=== PATIENT | male | born 1960 | race Caucasian/White ===

== ENCOUNTER 2020-09-20 08:40 | Inpatient (IN) | payer BC ==
[~2020-09-20] VITALS: Ht 190.5 cm; Wt 152.0 kg
[2020-09-20] MEDS ORDERED: metoprolol tartrate 1mg/ml inj IV ONE (09:10)
[2020-09-20] MEDS ORDERED: FERR325T35 PO (09:26)
[2020-09-20] MEDS ORDERED: ASPI-1265 PO (09:26)
[2020-09-20] MEDS ORDERED: NITR0.4T51 SL (09:26)
[2020-09-20] MEDS ORDERED: FURO-150 PO (09:26)
[2020-09-20] MEDS ORDERED: METF500T PO (09:26)
[2020-09-20] MEDS ORDERED: CARV-50 PO (09:26)
[2020-09-20] MEDS ORDERED: POTA10TA19 PO (09:26)
[2020-09-20] MEDS ORDERED: ROSU10TA2 PO (09:26)
[2020-09-20] MEDS ORDERED: OMEG-79 PO (09:26)
[2020-09-20] MEDS ORDERED: OMEP40CA13 PO (09:26)
[2020-09-20 09:49] LABS: BASOPHILS % (AUTO) 0.4 % (0-1); EOSINOPHILS # (AUTO) 0.1 X10'3 (0-0.9); EOSINOPHILS % (AUTO) 1.5 % (0-6); HEMATOCRIT 44.4 % (42.0-52.0); HEMOGLOBIN 15.1 g/dl (14.0-17.9); LYMPHOCYTES % (AUTO) 30.5 % (21-51); MEAN CORPUSCULAR HEMOGLOBIN 30.8 PG (27.0-31.0); MEAN CORPUSCULAR VOLUME 90.7 FL (78-98); MEAN PLATELET VOLUME 9.1 FL (7.4-10.4); MONOCYTES # (AUTO) 0.4 X10'3 (0-0.9); MONOCYTES % (AUTO) 5.6 % (2-12); NEUTROPHILS # (AUTO) 4.1 X10'3 (1.8-7.7); PLATELET COUNT 226 X10'3 (140-440); RED BLOOD COUNT 4.89 X10'6 (4.70-6.10); RED CELL DISTRIBUTION WIDTH 14.1 % (11.5-14.5); WHITE BLOOD COUNT 6.7 X10'3 (4.5-11.0)
[2020-09-20 10:00] LABS: ALANINE AMINOTRANSFERASE 67 U/L (12-78); ALBUMIN 4.1 G/DL (3.4-5.0); ALKALINE PHOSPHATASE 78 IU/L (46-116); ANION GAP 11 (8-16); ASPARTATE AMINO TRANSFERASE 27 U/L (10-37); BILIRUBIN,TOTAL 0.3 MG/DL (0.1-1.0); BLOOD UREA NITROGEN 17 MG/DL (7-18); BUN/CREATININE RATIO 15.9 (5.4-32.0); CHLORIDE 100 MMOL/L (99-107); CREATININE 1.07 MG/DL (0.60-1.10); GLUCOSE 245 MG/DL (70-104); SODIUM 136 MMOL/L (135-145); TOTAL PROTEIN 8.2 G/DL (6.4-8.2); eGFR 70 ML/MIN
--- NOTE | 2020-09-20 11:56 | NUR ---
waiting for 3hr trop which is due at 1225 and then will evaluate as to whether he can go home after this blood work is back.
[2020-09-20] MEDS ORDERED: aspirin 81mg tab.chew PO STA (12:52)
[2020-09-20] MEDS ORDERED: nitroGLYCERIN 0.4mg SUBLingual tab SL PRN (13:35)
[2020-09-20] MEDS ORDERED: heparin 10,000 units/1 ML INJ IV ONE (13:40)
[2020-09-20] MEDS ORDERED: magnesium hydroxide 30ml (MOM) UD suspension PO PRN (13:40)
[2020-09-20] MEDS ORDERED: magnesium 4gm in 100ml NS 100 ML IV PRN (13:40)
[2020-09-20] MEDS ORDERED: potassium CL 10mEq/100ml bag 100 ML IV PRN ×2 (13:40)
[2020-09-20] MEDS ORDERED: acetaminophen 325mg tablet PO PRN (13:40)
[2020-09-20] MEDS ORDERED: magnesium 2GM in 50ml NS 50 ML IV PRN (13:40)
[2020-09-20] MEDS ORDERED: HYDROcodone/acetaminophen 5mg/325mg tablet PO PRN (13:40)
[2020-09-20] MEDS ORDERED: heparin 10,000 units/1 ML INJ IV PRN (13:40)
[2020-09-20] MEDS ORDERED: magnesium Cl slow-release 64mg tablet PO PRN (13:40)
[2020-09-20] MEDS ORDERED: potassium Cl 20 mEq SR tablet PO PRN ×2 (13:40)
[2020-09-20] MEDS ORDERED: mag hydrox/Alum hydrox/simeth 30ml oral suspension PO PRN (13:40)
[2020-09-20] MEDS ORDERED: HYDROcodone/acetaminophen 10/325mg tab PO PRN (13:40)
[2020-09-20] MEDS ORDERED: ondansetron/PF 4mg/2ml inj IV PRN (13:40)
[2020-09-20] MEDS ORDERED: metoclopramide 5 mg/ml inj IV PRN (13:40)
[2020-09-20] MEDS ORDERED: acetaminophen 650mg rectal suppository RC PRN (13:40)
[2020-09-20] MEDS ORDERED: morphine 2 MG/ML inj. syringe IV PRN ×2 (13:40)
[2020-09-20] MEDS: heparin 25,000 UNIT/250ml bag 250 ML IV SCH ×2 (14:02→21:34)
[2020-09-20 14:09] LABS: URINE AMPHETAMINE SCREEN NEGATIVE (Neg); URINE BARBITUATE SCREEN NEGATIVE (Neg); URINE BENZODIAZEPINES SCREEN NEGATIVE (Neg); URINE CANNABINOID SCREEN NEGATIVE (Neg); URINE COCAINE SCREEN NEGATIVE (Neg); URINE METHADONE SCREEN NEGATIVE (Neg); URINE OPIATE SCREEN NEGATIVE (Neg); URINE PHENCYCLIDINE SCREEN NEGATIVE (Neg)
[2020-09-20] MEDS: normal saline 1000ml 1,000 ML IV SCH ×2 (14:09→23:19)
[2020-09-20 15:10] LABS: BASOPHILS % (AUTO) 0.4 % (0-1); EOSINOPHILS # (AUTO) 0.1 X10'3 (0-0.9); EOSINOPHILS % (AUTO) 1.4 % (0-6); HEMATOCRIT 42.9 % (42.0-52.0); HEMOGLOBIN 14.4 g/dl (14.0-17.9); LYMPHOCYTES # (AUTO) 2.8 X10'3 (1.1-4.8); LYMPHOCYTES % (AUTO) 38.7 % (21-51); MEAN CORPUSCULAR HEMOGLOBIN 30.2 PG (27.0-31.0); MEAN CORPUSCULAR HGB CONC 33.6 g/dL (33.0-36.5); MEAN CORPUSCULAR VOLUME 89.8 FL (78-98); MEAN PLATELET VOLUME 8.8 FL (7.4-10.4); MONOCYTES # (AUTO) 0.5 X10'3 (0-0.9); MONOCYTES % (AUTO) 6.9 % (2-12); NEUTROPHILS # (AUTO) 3.8 X10'3 (1.8-7.7); NEUTROPHILS % (AUTO) 52.6 % (42-75); PLATELET COUNT 222 X10'3 (140-440); RED BLOOD COUNT 4.77 X10'6 (4.70-6.10); WHITE BLOOD COUNT 7.2 X10'3 (4.5-11.0)
[2020-09-20 15:24] LABS: PARTIAL THROMBOPLASTIN TIME 50 SECONDS (22-32)
--- NOTE | 2020-09-20 15:56 | NUR ---
New PTT needs to be drawn at 2039 to recheck levels.
[2020-09-20 16:21] LABS: MAGNESIUM 1.7 MG/DL (1.5-2.4)
[2020-09-20] MEDS: furosemide 20MG tablet PO SCH (20:00)
[2020-09-20] MEDS: K and/or MAG REPLACEMENT MC SCH (20:00)
[2020-09-20] MEDS: carVEDilol 12.5mg tablet PO SCH (20:17)
[2020-09-20] MEDS: potassium Cl 20 mEq SR tablet PO SCH (20:18)
[2020-09-20] MEDS: atorvastatin 20mg tablet PO SCH (20:21)
--- NOTE | 2020-09-20 20:23 | NUR ---
Patient states he only takes his evening dose of lasix if his legs swell and he politely declines his evening dose.
[2020-09-20] MEDS ORDERED: temazepam 15mg capsule PO PRN (21:00)
[2020-09-21] VITALS (7 sets, daily range): BP systolic 122–166; BP diastolic 60–85
--- NOTE | 2020-09-21 01:06 | NUR ---
received report. room ready in 311.
[2020-09-21 03:06] LABS: HEMOGLOBIN A1C 7.8 % (4.5-6.2)
[2020-09-21 03:56] LABS: BASOPHILS % (AUTO) 0.3 % (0-1); EOSINOPHILS # (AUTO) 0.1 X10'3 (0-0.9); EOSINOPHILS % (AUTO) 1.8 % (0-6); HEMATOCRIT 38.6 % (42.0-52.0); HEMOGLOBIN 13.1 g/dl (14.0-17.9); LYMPHOCYTES # (AUTO) 2.7 X10'3 (1.1-4.8); LYMPHOCYTES % (AUTO) 38.5 % (21-51); MEAN CORPUSCULAR HEMOGLOBIN 30.5 PG (27.0-31.0); MEAN CORPUSCULAR VOLUME 89.6 FL (78-98); MEAN PLATELET VOLUME 8.7 FL (7.4-10.4); MONOCYTES # (AUTO) 0.5 X10'3 (0-0.9); MONOCYTES % (AUTO) 6.8 % (2-12); NEUTROPHILS # (AUTO) 3.7 X10'3 (1.8-7.7); NEUTROPHILS % (AUTO) 52.6 % (42-75); PLATELET COUNT 182 X10'3 (140-440); RED BLOOD COUNT 4.31 X10'6 (4.70-6.10); RED CELL DISTRIBUTION WIDTH 14.3 % (11.5-14.5); WHITE BLOOD COUNT 7.1 X10'3 (4.5-11.0)
[2020-09-21 04:11] LABS: ALBUMIN 3.4 G/DL (3.4-5.0); ANION GAP 11 (8-16); BLOOD UREA NITROGEN 14 MG/DL (7-18); CALCIUM 8.6 MG/DL (8.5-10.1); CHLORIDE 106 MMOL/L (99-107); CHOLESTEROL 127 MG/DL (0-200); CREATININE 1.08 MG/DL (0.60-1.10); GLUCOSE 184 MG/DL (70-104); HDL CHOLESTEROL 32 MG/DL (35-60); LDL CHOLESTEROL 71 MG/DL (50-100); MAGNESIUM 1.7 MG/DL (1.5-2.4); POTASSIUM 3.6 MMOL/L (3.5-5.1); SODIUM 141 MMOL/L (135-145); TOTAL CARBON DIOXIDE 23.9 MMOL/L (24-32); TRIGLYCERIDES 248 MG/DL (20-135); eGFR 70 ML/MIN
[2020-09-21] MEDS: heparin 25,000 UNIT/250ml bag 250 ML IV SCH ×2 (04:22→08:15)
--- NOTE | 2020-09-21 06:28 | NUR ---
reported to days. noted pt not having pain at all since 1800.
[2020-09-21] MEDS: K and/or MAG REPLACEMENT MC SCH ×2 (08:00→19:27)
[2020-09-21] MEDS: carVEDilol 12.5mg tablet PO SCH ×2 (08:11→19:27)
[2020-09-21] MEDS: aspirin 81mg tab.chew PO SCH (08:11)
[2020-09-21] MEDS: furosemide 20MG tablet PO SCH ×2 (08:11→19:29)
[2020-09-21] MEDS: pantoprazole 40mg Tablet.DR PO SCH (08:11)
[2020-09-21] MEDS: potassium Cl 20 mEq SR tablet PO SCH ×2 (08:11→19:27)
[2020-09-21] MEDS: normal saline 1000ml 1,000 ML IV SCH ×2 (08:17→19:40)
--- NOTE | 2020-09-21 09:19 | NUR ---
NOTIFIED PAGER ID: [phone] MESSAGE: [phone] SHANA JUNIOR. COMPLAINING OF CHEST BURNING/PRESSURE. 12-LEAD EKG TAKEN. I DONT SEE CHANGE. WOULD YOU LIKE TO SEE TO SEE IT? IVETH BARNES EXT [id number]
[2020-09-21] MEDS: acetaminophen 325mg tablet PO PRN ×2 (09:39→19:27)
[2020-09-21 10:20] LABS: H PYLORI ANTIBODY NEGATIVE (Neg)
[2020-09-21] MEDS ORDERED: heparin 1,000unit/ml 10ml vial 10 ML ONE (11:08)
[2020-09-21] MEDS ORDERED: nitroGLYCERIN-Tridil 50MG/D5W 250 ML IV ONE (11:08)
[2020-09-21] MEDS ORDERED: iohexol 350 MG/1 ML 200ml bottle ONE (11:08)
[2020-09-21] MEDS ORDERED: iohexol 350 MG/ML 50ML vial IV ONE (11:08)
[2020-09-21] MEDS ORDERED: LIDOcaine 1% 30ml preserv. free vial ONE (11:09)
[2020-09-21] MEDS ORDERED: midazolam 2 mg/2 ml injection ONE (11:41)
[2020-09-21] MEDS ORDERED: fentaNYL/PF 50MCG/1 ML 2ML syringe ONE (11:41)
--- NOTE | 2020-09-21 13:20 | NUR ---
Patient returned from electronic lab technician, report rec'd. right groin with dressing and pressure dressing, per report is minx closure device. No bleeding or hematoma present. vss. awake, alert and oriented. Pedal pulses strong and palpable.
--- NOTE | 2020-09-21 15:18 | NUR ---
DM consult, A1c 7.8%, pt met at bedside and given written DM education handout with verbal review and RD contact information. Addendum: 09/21/20 at [address] Amended: Links added.
[2020-09-21] MEDS ORDERED: dextrose ORAL solution 15 GM/59 ML bottle PO PRN ×2 (15:45)
[2020-09-21] MEDS ORDERED: insulin Lispro (HumaLOG) vial - multi-dose SQ SCH (15:45)
[2020-09-21] MEDS ORDERED: glucagon, human recombinant 1mg kit SUBCUT PRN (15:45)
[2020-09-21] MEDS ORDERED: dextrose 50%-water 50ml dispensing syringe IV PRN ×2 (15:45)
[2020-09-21] MEDS ORDERED: insulin glargine (Lantus) pen - multi-dose SQ SCH (21:00)
[2020-09-21] MEDS: atorvastatin 20mg tablet PO SCH (21:33)
[2020-09-22 03:00] VITALS: BP 129/72
[2020-09-22] MEDS: normal saline 1000ml 1,000 ML IV SCH (05:40)
[2020-09-22 05:58] LABS: EOSINOPHILS # (AUTO) 0.1 X10'3 (0-0.9); HEMOGLOBIN 13.2 g/dl (14.0-17.9); MONOCYTES # (AUTO) 0.4 X10'3 (0-0.9); NEUTROPHILS # (AUTO) 3.6 X10'3 (1.8-7.7); RED BLOOD COUNT 4.36 X10'6 (4.70-6.10)
[2020-09-22 06:00] VITALS: BP 164/90
[2020-09-22 06:00] LABS: BASOPHILS % (AUTO) 0.3 % (0-1); EOSINOPHILS % (AUTO) 1.6 % (0-6); HEMATOCRIT 39.4 % (42.0-52.0); LYMPHOCYTES # (AUTO) 1.7 X10'3 (1.1-4.8); LYMPHOCYTES % (AUTO) 28.9 % (21-51); MEAN CORPUSCULAR HEMOGLOBIN 30.2 PG (27.0-31.0); MEAN CORPUSCULAR HGB CONC 33.4 g/dL (33.0-36.5); MEAN CORPUSCULAR VOLUME 90.4 FL (78-98); MEAN PLATELET VOLUME 8.9 FL (7.4-10.4); MONOCYTES % (AUTO) 7.5 % (2-12); NEUTROPHILS % (AUTO) 61.7 % (42-75); PLATELET COUNT 181 X10'3 (140-440); WHITE BLOOD COUNT 5.8 X10'3 (4.5-11.0)
[2020-09-22 06:09] LABS: ALBUMIN 3.4 G/DL (3.4-5.0); ANION GAP 9 (8-16); BLOOD UREA NITROGEN 11 MG/DL (7-18); BUN/CREATININE RATIO 12.4 (5.4-32.0); CALCIUM 8.8 MG/DL (8.5-10.1); CHLORIDE 105 MMOL/L (99-107); CREATININE 0.89 MG/DL (0.60-1.10); GLUCOSE 179 MG/DL (70-104); MAGNESIUM 1.9 MG/DL (1.5-2.4); POTASSIUM 3.9 MMOL/L (3.5-5.1); SODIUM 138 MMOL/L (135-145); TOTAL CARBON DIOXIDE 23.6 MMOL/L (24-32); eGFR 87 ML/MIN
--- NOTE | 2020-09-22 06:27 | NUR ---
Problems reprioritized. Patient report given, questions answered & plan of care reviewed with IVETH Garner.
--- NOTE | 2020-09-22 06:43 | NUR ---
Patient in room MED 311. I have received report from IVETH Chamorro and had the opportunity to ask questions and assume patient care.
[2020-09-22] MEDS: aspirin 81mg tab.chew PO SCH (08:26)
[2020-09-22] MEDS: pantoprazole 40mg Tablet.DR PO SCH (08:27)
[2020-09-22] MEDS: potassium Cl 20 mEq SR tablet PO SCH (08:27)
[2020-09-22] MEDS: furosemide 20MG tablet PO SCH (08:27)
[2020-09-22] MEDS: carVEDilol 12.5mg tablet PO SCH (08:27)
[2020-09-22] MEDS: K and/or MAG REPLACEMENT MC SCH (08:48)
[2020-09-22] MEDS ORDERED: CARV-50 PO (10:56)
--- NOTE | 2020-09-22 13:01 | NUR ---
Pt stable for discharge per MD order. Provided discharge education and instructions and answered any questions patient may have. New medications sent to preferred pharmacy - [facility] in [place]. PIV removed, cannula intact. Tele monitor removed. Belongings sent with patient. Pt walked to lobby by Charge Nurse for pts to pick him up.
== END 2020-09-22 13:00 | disposition home or self-care (01) | DRG 287 ==
LOC: EDBD 08:42 → ER 08:42 → UNDOADMIN 13:37 → ED HOLD 13:37 → MED 3N 09-21 01:10 → CMPBEDREQ 09-21 02:13
PROVIDERS: ADMIT Family Medicine; ATTEND Family Medicine
PROC: 4A023N7 Measurement of Cardiac Sampling and Pressure, Left Heart, Percutaneous Approach (ICD-10-PCS; principal; 2020-09-22)
PROC: B2111ZZ Fluoroscopy of Multiple Coronary Arteries using Low Osmolar Contrast (ICD-10-PCS; 2020-09-22)
PROC: B21F1ZZ Fluoroscopy of Other Bypass Graft using Low Osmolar Contrast (ICD-10-PCS; 2020-09-22)
DX: R07.89 Other chest pain (principal); Z68.41 Body mass index [BMI] 40.0-44.9, adult; E11.9 Type 2 diabetes mellitus without complications; E66.01 Morbid (severe) obesity due to excess calories; E78.5 Hyperlipidemia, unspecified; G47.33 Obstructive sleep apnea (adult) (pediatric); I11.0 Hypertensive heart disease with heart failure; I25.119 Atherosclerotic heart disease of native coronary artery with unspecified angina pectoris; Z96.643 Presence of artificial hip joint, bilateral; I48.91 Unspecified atrial fibrillation; Z96.612 Presence of left artificial shoulder joint; I50.9 Heart failure, unspecified; I49.9 Cardiac arrhythmia, unspecified; M19.90 Unspecified osteoarthritis, unspecified site; Z87.19 Personal history of other diseases of the digestive system; Z87.442 Personal history of urinary calculi; I25.2 Old myocardial infarction; Z95.1 Presence of aortocoronary bypass graft; Z95.5 Presence of coronary angioplasty implant and graft; Z79.82 Long term (current) use of aspirin; Z79.899 Other long term (current) drug therapy
CPT/HCPCS: 36415; 71045; 76937; 80048; 80053; 80061; 80305; 82948; 83036; 83735; 84443; 84484; 85025; 85347; 85610; 85730; 86677; 87081; 93005; 93308; 93459; 96374; 96375; 99152; 99153; 99285; A4620; A6258; A6449; C1760; C1769; G0378; J1644; J1815; J2001; J2250; J3010; J3490; J7030; Q9967